=== PATIENT | male | born 1965 | race Caucasian/White ===

== ENCOUNTER 2021-03-10 09:30 | Outpatient (CLI) | payer OTHER, SELFPAY ==
--- NOTE | ~2021-03-10 | XR_ITS ---
EXAMINATION: XR chest 2V DATE: 03/10/2021 10:33 INDICATION: Encounter for other preprocedural examination. TECHNIQUE: Frontal and lateral views of the chest were obtained. COMPARISON: None. FINDINGS: The chest demonstrates clear lungs without pneumonia, pleural effusion, or pneumothorax. Th e heart size is normal. IMPRESSION: 1. No acute cardiopulmonary disease. Reviewed, dictated and finalized at location A. RATOR L[employer]ING [employer]TURES
--- NOTE | 2021-03-10 09:34 | ECG_ITS ---
Measurements Intervals [place] Rate: 61 P: 72 HI: 156 QRS: 57 QRSD: 90 T: 43 QT: 399 QTc: 403 Interpretive Statements SINUS RHYTHM POSSIBLE LEFT ATRIAL ENLARGEMENT INCOMPLETE RIGHT BUNDLE BRANCH BLOCK BASELINE ARTIFACT- I, III, AVL BORDERLINE ECG Electronically Signed On 03-10-2021 10:58:05 VENDOR MANAGER by Tommie Rodriguez D.O.
[2021-03-10 10:29] LABS: Basophils Absolute Auto 0.1 K/mm3 (0.0-0.1); Eosinophils Absolute Auto 0.1 K/mm3 (0-0.3); Eosinophils Percent Auto 2.5 % (0-4.4); Hematocrit 43.4 % (42.0-52.0); Hemoglobin 13.8 g/dL (14.0-18.0); Immature Granulocyte Absolute 0.01 K/mm3 (0.00-0.031); Immature Granulocyte Percent A 0.2 % (0-0.5); Lymphocytes Absolute Auto 1.24 K/mm3 (0.9-3.2); Lymphocytes Percent Auto 25.9 % (18.3-44.2); Mean Corpuscular HGB Conc 31.8 g/dl (32-36); Mean Corpuscular Hemoglobin 28.1 pg (26-34); Mean Corpuscular Volume 88.4 fl (80-100); Mean Platelet Volume 9.9 fl (7.4-10.4); Monocytes Absolute Auto 0.4 K/mm3 (0.1-0.6); Monocytes Percent Auto 9.2 % (2.6-8.5); Neutrophils Absolute Auto 2.9 K/mm3 (1.3-6.7); Neutrophils Percent Auto 61.2 % (45.5-73.1); Platelet Count Result 243 k/mm3 (150-375); Red Blood Count 4.91 M/mm3 (4.6-6.20); White Blood Count 4.8 K/mm3 (4.5-10.0)
[2021-03-10 10:40] LABS: Partial Thromboplastin Time 29.4 SECONDS (22.3-36.8)
[2021-03-10 10:42] LABS: Alanine Aminotransferase 17 U/L (4-50); Albumin Level 4.5 g/dL (3.5-5.1); Alkaline Phosphatase 85 U/L (38-126); Anion Gap 6 mmol/L (8-16); Aspartate Amino Transferase 25 U/L (17-59); Bilirubin,Total 0.7 mg/dL (0.2-1.3); Blood Urea Nitrogen 12 mg/dL (9-20); Calcium 9.4 mg/dL (8.4-10.2); Carbon Dioxide 30 mmol/L (22-30); Chloride 102 mmol/L (98-107); Estimated Glomerular Filt Rate > 60; Glucose 106 mg/dL (65-110); Potassium 4.3 mmol/L (3.4-5.0); Sodium 138 mmol/L (137-145)
== END 2021-03-10 09:31 | disposition home or self-care (01) ==
PROVIDERS: PCP Family Medicine; Visit Provider Nurse Practitioner Family
DX: Z01.818 Encounter for other preprocedural examination (principal); I45.10 Unspecified right bundle-branch block
CPT/HCPCS: 36415; 71046; 80053; 85025; 85730; 93005

== ENCOUNTER 2024-01-25 14:09 | Outpatient (CLI) | payer OTHER, SELFPAY ==
--- NOTE | ~2024-01-25 | US_ITS ---
EXAMINATION: US renal BI DATE: 01/25/2024 14:26 INDICATION: Gross hematuria. TECHNIQUE: Multiple ultrasound grayscale images of the kidneys were obtained. COMPARISON: None. FINDINGS: The right kidney measures 11.2 x 5.9 x 6.3 cm. The left kidney measures 11.2 x 5.4 x 4.3 cm. The kidn eys demonstrate normal parenchymal echogenicity. There is no hydronephrosis. There is a 1.9 x 1.8 x 1 .4 cm mass at the bladder wall. IMPRESSION: 1. 1.9 cm bladder mass suspicious for urothelial carcinoma. Reviewed, dictated and finalized at location A. OLE LEVELER
== END 2024-01-25 14:10 | disposition home or self-care (01) ==
LOC: MICIMG 14:10
PROVIDERS: PCP Urology; Visit Provider Family Medicine
DX: R31.0 Gross hematuria (principal)
CPT/HCPCS: 76775

== ENCOUNTER 2024-01-29 09:38 | Outpatient (CLI) | payer OTHER, SELFPAY ==
--- NOTE | ~2024-01-29 | CT_ITS ---
EXAMINATION: CT abdomen pelvis wo/w con DATE: 01/29/2024 10:39 INDICATION: Bladder mass. TECHNIQUE: Computed tomography (CT) of the abdomen and pelvis was performed without and with intraven ous contrast using a total of 130 mL Omnipaque-350 intravenous contrast with a double-bolus technique for simultaneous opacification of the renal parenchyma and renal collecting system. Automated exposu re control and iterative reconstruction technique were employed. The dose-length product was 1838.10 mGy-cm. COMPARISON: Ultrasound kidneys 01/25/2024 FINDINGS: The visualized portions of the lung bases demonstrate mild atelectasis. No pleural effusion. The hear t size is normal. No pericardial effusion. The liver, gallbladder, spleen, pancreas, adrenal glands, and kidneys are normal. There is no urolithiasis. The ureters are well opacified and are normal. Ther e is a 2.1 cm enhancing mass in the right posterior bladder. The prostate is mildly enlarged. There a re no dilated loops of bowel. The appendix is normal. There are no pathologically enlarged lymph node s. There is no free intraperitoneal fluid. There is severe lumbar spondylosis. IMPRESSION: 1. 2.1 cm enhancing bladder mass, consistent with urothelial carcinoma. Reviewed, dictated and finalized at location A. RUCTIONAL TECHNOLOGIST
[2024-01-29 10:19] LABS: Estimated Glomerular Filt Rate > 60
== END 2024-01-29 09:39 | disposition home or self-care (01) ==
PROVIDERS: PCP Urology; Visit Provider Family Medicine
DX: R31.0 Gross hematuria (principal); N32.89 Other specified disorders of bladder
CPT/HCPCS: 74178; Q9967

== ENCOUNTER 2024-02-11 13:59 | Outpatient (CLI) | payer OTHER, SELFPAY ==
[2024-02-11 20:10] LABS: Partial Thromboplastin Time 30.4 Seconds (22.3-36.8); Prothrombin Time 13.3 Seconds (11.1-14.7)
== END 2024-02-11 14:00 | disposition home or self-care (01) ==
PROVIDERS: PCP Family Medicine; Visit Provider Urology
DX: R31.9 Hematuria, unspecified (principal); Z01.818 Encounter for other preprocedural examination
CPT/HCPCS: 36415; 85610; 85730

== ENCOUNTER 2024-02-12 00:31 | Day surgery (SDC) | payer OTHER, SELFPAY ==
[2024-02-08 14:53] VITALS: BMI 26.4
--- NOTE | 2024-02-08 15:00 | PC.NURSE ---
Report to the Outpatient Waiting Room, entrance under the green pavilion located off [facility], at time _0600_ on date _[id number]_. Planned Procedure Time: _0730_.? Time changes happen often and if your time is changed the preop area will call you the afternoon before. - You and your visitor will be asked to self-screen and do not enter if you have any COVID symptoms. Please call surgeon if you need to reschedule. - A mask is optional within the hospital at this time. Patients may have clear liquids (water, carbonated beverages, clear teas, apple juice) until 3 hours prior to surgery with a maximum of 20 ounces. - No food from midnight until time of surgery and no smoking. This includes no chewing gum, candy or mints. Take only the following medications with a SIP of water on the morning of surgery: __None___ DO NOT STOP ANY OF YOUR OTHER PRESCRIPTION MEDICATIONS PRIOR TO SURGERY EXCEPT THE FOLLOWING Medications to discontinue per physician ____None Date to take last dose Please no make-up, nail thai, hairspray, perfume, deodorant, or body powder the day of surgery.? No jewelry (including any body piercings) or valuables the day of surgery, leave them at home.? Please take a shower or bath the night before, or the morning of, surgery with an antibacterial soap.? Wear comfortable, loose fitting clothing.? - Jewelry must be removed prior to entering the operating room.? Rings and piercings that are not removed may be cut off. - The hospital will not accept responsibility for valuables.? - Please leave all valuables, including medications, at home the day of surgery. If you are going home after surgery, a licensed racing car driver must drive you home.? - NO public transportation without another adult if you receive anesthesia. - We recommend that an adult stay with you for 24 hours following discharge. - We also recommend that you do not drive, make important decision, drink alcoholic beverages, or take any drugs that were not prescribed by your health care provider for at least 24 hours after your discharge time. Follow any additional instructions given to you from your surgeon. Telephone instructions given to __Javier__and asked if any additional questions and then verbalized understanding. Patient advised to call surgeon office or pre surgery nurse liaison [phone] if any additional questions.
[2024-02-12] VITALS (7 sets, daily range): BP systolic 97–143; BP diastolic 55–87; PULSE 53–67; RESP 10–20; TEMP 36.1–36.4; O2SAT 97–100
[2024-02-12] MEDS: LACTATED RINGERS 1,000 ML 30 ML IV CONT ×2 (06:27→08:11)
[2024-02-12 06:44] LABS: INR 0.9; Prothrombin Time 12.9 Seconds (11.1-14.7)
[2024-02-12 06:45] LABS: Partial Thromboplastin Time 29.5 Seconds (22.3-36.8)
--- NOTE | 2024-02-12 06:49 | P.PNAN_ITS ---
Anes - Initial Pre Proc Eval Procedure: Operation Date: 02/12/24 07:30 Proposed Procedures p Trans Urethral Resection Bladder Tumor - Brody Dobson MD Date/Time: 02/12/24 06:49 Surgeon: Brody Dobson MD Pre Op Diagnosis: gross hematuria, bladder lesions Patient Data Age: 58 Gender: M Height: 1.85 m Weight: 90.9 kg Allergies Allergy/AdvReac Type Severity Reaction Status Date / Time No Known Allergies Allergy Verified 02/08/24 14:53 Home Medications Medication Instructions Recorded Confirmed Type No Home Medications 03/10/21 02/12/24 History Laboratory Tests 02/12/24 06:19 PT 12.9 Seconds (11.1-14.7) INR 0.9 APTT 29.5 Seconds (22.3-36.8) Patient hx anesthesia problems: none Family hx anesthesia problems: none Results Review: All pre-operative results and documents have been reviewed as part of the pre- operative evaluation. [facility] Surgical History Surgical History History of left knee replacement Family History Family History Grandparent Family history of coronary artery disease Social History Social History Smoking status: Never smoker Alcohol intake: current Drinks per week: 7 Substance use: never Substance use type: does not use Living arrangements: with family Occupation/Education: occupation Additional occupation/education comments: Supervisor [employer] Gender identity (if verbalized by the patient): Male Spiritual care concerns: No Agree to blood products: Yes Anes - Eval Final PreProcedure Day of Procedure 02/12/24 06:49 Patient weight: overweight Heart: regular rate and rhythm Lungs: clear to auscultation Airway: Mallampati scale and special considerations (Lower implant. ) Neurological: alert and oriented Last oral intake: >/= 8 hours ASA classification: I Emergent: no Anesthetic plan: proceed Anesthesia type and monitoring: general LMA and standard monitoring Results Review: All pre-operative results and documents have been reviewed as part of the pre- operative evaluation. Pt active, no cp or sob w walking 1 mile. Informed Consent: The patient's anesthetic plan and its attendant risks and benefits were discussed with the patient/family/POA. Questions were solicited and answers provided to the satisfaction of the patient/family/POA.
--- NOTE | 2024-02-12 07:26 | WPDHPUPDATE1 ---
History and Physical Update Update Date/Time: 02/12/24 07:26 History and Physical has been reviewed, including an updated exam of the patient. There are NO changes in the patient's condition. Risks, benefits, and alternatives have been discussed and questions answered. Patient agrees to proceed with procedure.
[2024-02-12] MEDS: ceFAZolin 2 GM/D5W 50 ML 2 GM/50 ML BAG IVPB (07:37)
[2024-02-12] MEDS: LIDOCAINE HCL 2% GEL UROJET 10 ML PKG MUCOUS MEM (07:49)
--- NOTE | 2024-02-12 08:07 | W.PM.PROC2 ---
Procedure Note - Detailed Date of Procedure 02/12/24 Pre-op Diagnosis gross hematuria, bladder lesions Post-op Diagnosis Same Procedure Performed Transurethral resection of bladder tumor 2.5 cm medium Surgeon Brody Dobson MD Anesthesia General Description of Procedure Patient was taken to the operative suite correctly identified. Once anesthesia was obtained he was placed in dorsal lithotomy position and prepped and draped usual sterile fashion. Twenty-four Salvadorean scope was inserted the bladder. He has a tumor along the right posterior lateral wall on the floor just lateral to the right ureteral orifice. This was resected. The base was resected and sent as a separate specimen fulgurated the base for hemostasis. There was good hemostasis at termination procedure. 2% viscous lidocaine was inserted into the urethra patient is taken recovery stable condition. He will call for path results in 1 week. This completes dictation. Please send a copy of op note to my office. Estimated Blood Loss 0 Drains No Packing No Pathology Yes Complications No immediate complications Condition Stable Disposition PACU
== END 2024-02-12 10:00 | disposition home or self-care (01) ==
PROVIDERS: PCP Family Medicine; Visit Provider Urology
PROC: 0TBB8ZZ Excision of Bladder, Via Natural or Artificial Opening Endoscopic (ICD-10-PCS; CPT 52235; principal; 2024-02-12 07:30)
DX: C67.2 Malignant neoplasm of lateral wall of bladder (principal); Z98.890 Other specified postprocedural states; Z96.652 Presence of left artificial knee joint; Z80.9 Family history of malignant neoplasm, unspecified; Z82.49 Family history of ischemic heart disease and other diseases of the circulatory system
CPT/HCPCS: 52235; 36415; 85610; 85730; 88305; J0690; J1100; J2003; J2250; J2405; J2704; J3010; J7120